=== PATIENT | male | born 1995 | race Caucasian/White ===

== ENCOUNTER 2018-07-29 07:45 | Emergency (ER) | payer MEDICAID, OTHER ==
[~2018-07-29] VITALS: Ht 152.4 cm; Wt 54.0 kg
--- NOTE | 2018-07-29 08:12 | NUR ---
romy COOPER at bedside.
[2018-07-29] MEDS ORDERED: ibuprofen tablet 400 MG TABLET PO ONE (08:15)
[2018-07-29] MEDS ORDERED: TETanus/Pertussis (Acell)/Diphther VAC/PF (Tdap-Adult) 0.5ml syringe IM ONE (08:15)
[2018-07-29] MEDS ORDERED: LIDOcaine 1% w/epiNEPHrine 1:200,000 30ml vial IM ONE (08:15)
[2018-07-29] MEDS ORDERED: CEPH250T PO (08:59)
[2018-07-29] MEDS ORDERED: bacitracin ointment unit dose packet TP STA (09:14)
[2018-07-29] MEDS ORDERED: bacitracin 15gm ointment TP STA (09:18)
[2018-07-29 09:29] VITALS: BP 128/80
== END 2018-07-29 09:34 | disposition home or self-care (01) ==
LOC: ER 07:46
DX: S90.852A Superficial foreign body, left foot, initial encounter (principal); F12.90 Cannabis use, unspecified, uncomplicated; W22.09XA Striking against other stationary object, initial encounter; Y93.89 Activity, other specified; Y92.89 Other specified places as the place of occurrence of the external cause; Y99.9 Unspecified external cause status
CPT/HCPCS: 90471; 90715; 99284; J3490

== ENCOUNTER 2019-12-20 13:37 | Emergency (ER) | payer MEDICAID, OTHER ==
[~2019-12-20] VITALS: Ht 180.3 cm; Wt 63.6 kg
[2019-12-20 13:44] VITALS: BP 146/91
[2019-12-20] MEDS ORDERED: MUPI22OI30 TOP (14:06)
== END 2019-12-20 14:16 | disposition home or self-care (01) ==
LOC: ER 13:37
DX: T63.301A Toxic effect of unspecified spider venom, accidental (unintentional), initial encounter (principal); F12.90 Cannabis use, unspecified, uncomplicated; F19.90 Other psychoactive substance use, unspecified, uncomplicated; Z79.2 Long term (current) use of antibiotics; W57.XXXA Bitten or stung by nonvenomous insect and other nonvenomous arthropods, initial encounter; Y93.89 Activity, other specified; Y92.89 Other specified places as the place of occurrence of the external cause; Y99.8 Other external cause status
CPT/HCPCS: 99283

== ENCOUNTER 2022-08-26 14:36 | Emergency (ER) | payer MEDICAID, MEDICARE ==
[~2022-08-26] VITALS: Ht 175.3 cm; Wt 61.4 kg
[2022-08-26 15:50] VITALS: BP 136/76
== END 2022-08-26 18:10 | disposition home or self-care (01) ==
LOC: ER 14:37
DX: S01.111A Laceration without foreign body of right eyelid and periocular area, initial encounter (principal); M79.645 Pain in left finger(s); W22.8XXA Striking against or struck by other objects, initial encounter; Y93.89 Activity, other specified; Y92.89 Other specified places as the place of occurrence of the external cause; Y99.8 Other external cause status
CPT/HCPCS: 73110; 99283; J7030